=== PATIENT | male | born 1990 | race African-American/Black ===

== ENCOUNTER 2019-03-09 19:59 | Emergency (ER) | payer MEDICAID, OTHER ==
--- NOTE | 2019-03-09 20:46 | ER Document Report ---
ED Medical Screen (RME) - General Chief Complaint: Toothache Stated Complaint: TOOTH PAIN/FACIAL SWELLING Time Seen by Provider: 03/09/19 20:42 Primary Care Provider: ARAMIS WILSON [Primary Care Provider] - Follow up as needed Mode of Arrival: Ambulatory Information source: Patient Notes: Patient presents to the emergency department with crack in his wisdom tooth. He was treated for this 2 months ago. Reports pain. He did follow-up with dentist needs to follow-up to have the tooth pulled but he does not have dental insurance. He returns today for antibiotics. He reports he took 2 of his antibiotics that he had leftover from the last time he was here. No other symptoms such as fever vomiting diarrhea. She is speaking in clear voice no obvious facial swelling. I have greeted and performed a rapid initial assessment of this patient. A comprehensive ED assessment and evaluation of the patient, analysis of test results and completion of the medical decision making process will be conducted by additional ED providers. Dictation of this chart was performed using voice recognition software; therefore, there may be some unintended grammatical errors. TRAVEL OUTSIDE OF THE [place] IN LAST 30 DAYS: No - Related Data Allergies/Adverse Reactions: No Known Allergies Allergy (Verified 03/09/19 20:33) Doctor's Discharge - Discharge Referrals: ARAMIS WILSON [Primary Care Provider] - Follow up as needed
[2019-03-09] MEDS ORDERED: CEFTRIAXONE INJ 250 MG VIAL IM ONE (21:33)
--- NOTE | 2019-03-09 21:47 | ER Document Report ---
ED Oral Problem - General Chief Complaint: Toothache Stated Complaint: TOOTH PAIN/FACIAL SWELLING Time Seen by Provider: 03/09/19 20:42 Primary Care Provider: ARAMIS WILSON [NO LOCAL MD] - Follow up as needed Mode of Arrival: Ambulatory Information source: Patient Notes: Patient complains of right lower molar pain for the last couple days. No trismus. He took antibiotics at home that he found. He was diagnosed with a fractured R lower molar about a month ago, but has not been able to go to the dentist to get it fixed. No neck pain. No rashes. No other complaints. He is requesting antibiotics. TRAVEL OUTSIDE OF THE [place] IN LAST 30 DAYS: No - Related Data Allergies/Adverse Reactions: No Known Allergies Allergy (Verified 03/09/19 20:33) Past Medical History - General Information source: Patient - Social History Smoking Status: Never Smoker Frequency of alcohol use: None Drug Abuse: None Family History: None Patient has suicidal ideation: No Patient has homicidal ideation: No Renal/ Medical History: Denies: Hx Peritoneal Dialysis Review of Systems - Review of Systems Constitutional: denies: Chills, Fever -: Yes All other systems reviewed and negative Physical Exam - General General appearance: Appears well, Alert - HEENT Head: Normocephalic, Atraumatic Eyes: Normal Pupils: PERRL Ears: Normal External canal: Normal Tympanic membrane: Normal Sinus: Normal Nasal: Normal Mouth/Lips: Dental fracture - Tooth #30 periapical abscess Mucous membranes: Normal Pharynx: Normal Neck: Normal - Respiratory Respiratory status: No respiratory distress Chest status: Nontender Breath sounds: Normal Chest palpation: Normal - Cardiovascular Rhythm: Regular Heart sounds: Normal auscultation Murmur: No - Abdominal Inspection: Normal Distension: No distension Bowel sounds: Normal Tenderness: Nontender Organomegaly: No organomegaly - Back Back: Normal, Nontender - Extremities General upper extremity: Normal inspection, Nontender, Normal color, Normal ROM, Normal temperature General lower extremity: Normal inspection, Nontender, Normal color, Normal ROM, Normal temperature, Normal weight bearing. No: Celena's sign - Neurological Neuro grossly intact: Yes Cognition: Normal Orientation: AAOx4 Nicol Coma Scale Eye Opening: Spontaneous Nicol Coma Scale Verbal: Oriented [place] Coma Scale Motor: Obeys Commands Nicol Coma Scale Total: 15 Speech: Normal Motor strength normal: LUE, RUE, LLE, RLE Sensory: Normal - Psychological Associated symptoms: Normal affect, Normal mood - Skin Skin Temperature: Warm Skin Moisture: Dry Skin Color: Normal Course - Re-evaluation Re-evalutation: 03/09/19 21:48 Antibiotics ordered. Discharge - Discharge Clinical Impression: Periapical abscess Condition: Stable Disposition: HOME, SELF-CARE Instructions: Penicillin V K ([facility]), Toothache ([facility]) Additional Instructions: RETURN AT ONCE IF WORSE OR NEW SYMPTOMS. SEE YOUR DENTIST FOR RECHECK TOMORROW. Prescriptions: Penicillin V Potassium [Penicillin Vk 500 mg Tablet] 500 mg PO BID #20 tablet Referrals: LOCALMD,NO [NO LOCAL MD] - Follow up as needed
--- NOTE | 2019-03-09 22:01 | ER Document Report ---
ED Oral Problem - General Chief Complaint: Toothache Stated Complaint: TOOTH PAIN/FACIAL SWELLING Time Seen by Provider: 03/09/19 20:42 Primary Care Provider: ARAMIS WILSON [NO LOCAL MD] - Follow up as needed Mode of Arrival: Ambulatory Information source: Patient Notes: Patient complains of right lower molar pain for the last couple days. No trismus. No ear pain. No rashes. No neck pain. No other complaints. Patient has taken 2 doses of antibiotics at home that he still had around. Patient is requesting antibiotics until he can see his dentist. Apparently, he fractured a right lower molar a month ago.. TRAVEL OUTSIDE OF THE [place] IN LAST 30 DAYS: No - Related Data Allergies/Adverse Reactions: No Known Allergies Allergy (Verified 03/09/19 20:33) Past Medical History - General Information source: Patient - Social History Smoking Status: Never Smoker Frequency of alcohol use: None Drug Abuse: None Family History: None Patient has suicidal ideation: No Patient has homicidal ideation: No Renal/ Medical History: Denies: Hx Peritoneal Dialysis Review of Systems - Review of Systems Constitutional: denies: Chills, Fever -: Yes All other systems reviewed and negative Physical Exam - Vital signs Vitals: Temp Pulse Resp BP Pulse Ox 99.3 F 89 18 154/97 H 100 03/09/19 20:24 03/09/19 20:24 03/09/19 20:24 03/09/19 20:24 03/09/19 20:24 - General General appearance: Appears well, Alert - HEENT Head: Normocephalic, Atraumatic Eyes: Normal Pupils: PERRL Ears: Normal Tympanic membrane: Normal Nasal: Normal Mouth/Lips: Dental fracture - CLOSED TOOTH #30 WITH PERIAPICAL ABSCESS Pharynx: Normal Neck: Normal - Respiratory Respiratory status: No respiratory distress Chest status: Nontender Breath sounds: Normal Chest palpation: Normal - Cardiovascular Rhythm: Regular Heart sounds: Normal auscultation Murmur: No - Abdominal Inspection: Normal Distension: No distension Bowel sounds: Normal Tenderness: Nontender Organomegaly: No organomegaly - Back Back: Normal, Nontender - Extremities General upper extremity: Normal inspection, Nontender, Normal color, Normal ROM, Normal temperature General lower extremity: Normal inspection, Nontender, Normal color, Normal ROM, Normal temperature, Normal weight bearing. No: Celena's sign - Neurological Neuro grossly intact: Yes Cognition: Normal Orientation: AAOx4 Nicol Coma Scale Eye Opening: Spontaneous [place] Coma Scale Verbal: Oriented [place] Coma Scale Motor: Obeys Commands Nicol Coma Scale Total: 15 Speech: Normal Motor strength normal: LUE, RUE, LLE, RLE Sensory: Normal - Psychological Associated symptoms: Normal affect, Normal mood - Skin Skin Temperature: Warm Skin Moisture: Dry Skin Color: Normal Course - Re-evaluation Re-evalutation: 03/09/19 21:40 ANTIBIOTICS ORDERED. - Vital Signs Vital signs: Temp Pulse Resp BP Pulse Ox 99.8 F 73 18 175/99 H 100 03/09/19 22:11 03/09/19 22:11 03/09/19 22:11 03/09/19 22:11 03/09/19 22:11 Discharge - Discharge Clinical Impression: Periapical abscess Condition: Stable Disposition: HOME, SELF-CARE Instructions: Penicillin V K ([facility]), Toothache ([facility]) Additional Instructions: RETURN AT ONCE IF WORSE OR NEW SYMPTOMS. SEE YOUR DENTIST FOR RECHECK TOMORROW. Prescriptions: Penicillin V Potassium [Penicillin Vk 500 mg Tablet] 500 mg PO BID #20 tablet Referrals: LOCALMD,NO [NO LOCAL MD] - Follow up as needed
[2019-03-09] MEDS ORDERED: LIDOCAINE 1% INJ-PF (10 MG/ML) 30 ML SDV IM ONE (22:13)
[2019-03-09] MEDS ORDERED: CEFTRIAXONE INJ 1000 MG VIAL IM ONE (22:13)
[2019-03-09 22:16] VITALS: BP 175/99
== END 2019-03-09 22:24 | disposition home or self-care (01) ==
LOC: ER 19:59
DX: K04.7 Periapical abscess without sinus (principal); K08.89 Other specified disorders of teeth and supporting structures
CPT/HCPCS: 99282; 96372; J3490; J0696